=== PATIENT | male | born 1980 | race Caucasian/White ===

== ENCOUNTER 2018-08-26 11:46 | Emergency (ER) | payer OTHER ==
[2018-08-26 11:56] VITALS: BP 129/84
--- NOTE | 2018-08-26 11:57 | UC ---
Skin Complaint HPI - HPI Summary HPI Summary: 38 yo male presents with growth to the back of his scalp. He tells me that about 1.5 weeks ago he noticed this area about dime size and has enlarged to about quarter sized since that time. Is mildly tender, but he admits that he has been touching it a lot. He has an appointment next week with his PCP for this same issue. He denies fever, chills, weight loss, night sweats, SOB, chest pain. - History of Current Complaint Chief Complaint: UCSkin Time Seen by Provider: 08/26/18 11:57 Stated Complaint: SKIN COMPLAINT Hx Obtained From: Patient Onset/Duration: Gradual Onset Onset Severity: Mild Current Severity: Mild Pain Intensity: 2 Pain Scale Used: 0-10 Numeric - Allergy/Home Medications Allergies/Adverse Reactions: Allergies Allergy/AdvReac Type Severity Reaction Status Date / Time No Known Allergies Allergy Verified 08/26/18 11:56 Review of Systems Constitutional: Negative Skin: Other - Growth on back of head Eyes: Negative ENT: Negative Respiratory: Negative Cardiovascular: Negative Gastrointestinal: Negative Neurovascular: Negative Neurological: Negative Psychological: Negative All Other Systems Reviewed And Are Negative: Yes PMH/Surg Hx/FS Hx/Imm Hx - Additional Past Medical History Additional PMH: None - Surgical History Surgical History: Yes Surgery Procedure, Year, and Place: finger surgery - Family History Known Family History: Positive: None - Social History Occupation: Employed Full-time Lives: With Family Alcohol Use: Occasionally Substance Use Type: None Smoking Status (MU): Never Smoked Tobacco Physical Exam - Summary Physical Exam Summary: GENERAL: NAD. WDWN. No pain distress. SKIN: Left occiput area with soft tissue 2.0cm firm and mobile growth. Mild TTP. No erythema, warmth, induration, ingrown hair, or drainage. NECK: Supple. Nontender. No lymphadenopathy. CHEST: No accessory muscle use. Breathing comfortably and in no distress. CV: Pulses intact. Cap refill <2seconds NEURO: Alert. PSYCH: Age appropriate behavior. Triage Information Reviewed: Yes Vital Signs: Initial Vital Signs Temp 97.9 F 08/26/18 11:53 Pulse 65 08/26/18 11:53 Resp 16 08/26/18 11:53 BP 129/84 08/26/18 11:53 Pulse Ox 100 08/26/18 11:53 Vital Signs Reviewed: Yes Course/Dx - Course Course Of Treatment: Suspect enlarged lymphnode vs lipoma. Discussed this with pt and will draw for a CBC and refer him to general surgery for further evaluation. Keep visit with PCP for next week. Pt voiced understanding and is in agreement with the plan. - Diagnoses Provider Diagnoses: Soft tissue mass back of scalp Discharge - Sign-Out/Discharge Documenting (check all that apply): Patient Departure All imaging exams completed and their final reports reviewed: No Studies - Discharge Plan Condition: Stable Disposition: HOME Patient Education Materials: Lipoma (ED) Referrals: Roni Witt MD [Primary Care Provider] - Markus Lara MD [Medical Doctor] - As Soon As Possible Additional Instructions: If you develop a fever, shortness of breath, chest pain, new or worsening symptoms - please call your PCP or go to the ED. I suspect the growth in the back of your head is a lipoma. For further evaluation, however, I recommend that you follow up with a general surgeon at the number below. - Billing Disposition and Condition Condition: STABLE Disposition: Home
[2018-08-26 16:24] LABS: ABS Basophils 0 10^3/ul (0-0.2); ABS Eosinophils 0.2 10^3/ul (0-0.6); ABS Lymphocytes 2.1 10^3/ul (1.0-4.8); ABS Monocytes 0.5 10^3/ul (0-0.8); ABS Neutrophils 1.7 10^3/ul (1.5-7.7); ABS Nucleated RBC 0 10^3/ul; Eosinophil % 3.5 % (0-6); Hematocrit 40 % (42-52); Hemoglobin 13.8 g/dl (14.0-18.0); Lymphocyte % 46.4 % (25-47); Mean Corpuscular HGB Conc 34 g/dl (31-36); Mean Corpuscular Hemoglobin 31 pg (27-31); Mean Corpuscular Volume 91 fL (80-94); Nucleated Red Blood Cells % 0; Platelet Count 248 10^3/ul (150-450); Red Blood Count 4.45 10^6/ul (4.00-5.40); Red Cell Distribution Width 13 % (10.5-15); White Blood Count 4.5 10^3/ul (3.5-10.8)
== END 2018-08-26 12:19 | disposition home or self-care (01) ==
LOC: UCEAST 11:46
DX: M79.89 Other specified soft tissue disorders (principal)
CPT/HCPCS: 36415; 85025; 99211; G0463